=== PATIENT | female | born 1985 | race Caucasian/White ===

== ENCOUNTER 2018-04-18 12:18 | Emergency (ER) | payer MEDICAID ==
[2018-04-18 12:27] VITALS: BMI 29.8
[2018-04-18 12:49] VITALS: TEMP 98.8
--- NOTE | 2018-04-18 13:02 | ED PDOC ---
Arrival/HPI - General Chief Complaint: Shortness Of Breath Time Seen by Provider: 04/18/18 12:24 Historian: Patient, Business Education Teacher - History of Present Illness Narrative History of Present Illness (Text): 04/18/18 12:51 Patient is a 32 year old female whose past medical history includes diabetes, section, and who presents to the emergency department complaining of dyspnea on exertion that started 2 days ago, and is associated with her chest pressure which she experiences daily. Patient is predominately Kazakh speaking and translation was provided by Angel Ramirez ([id number]) from [employer]. Patient reports that 2 days ago she started experiencing dyspnea and chest pressure while walking. Yesterday she experienced chest pressure while walking which lasted 30 minutes and was alleviated by her inhaler. Patient mentions that she experiences daily chest pressure. Today she started experiencing another episode of dyspnea on exertion with chest pressure approximately 1-1.25 hours ago. She mentions that she has a history of dyspnea which she attributes to hot weather. In the past her physician prescribed her an inhaler to take as needed to alleviate her dyspnea and chest pressure. She states that 5 years ago she presented to emergency department while and was admitted to the hospital for 10 days for a respiratory infection and pleural effusion. Patient denies any recent emergency department admission for chest pressure or dyspnea. Patient has been taking insulin for the past 15 years to treat her diabetes and notes that her glucose today of 340 is the highest it has ever been. Patient denies any hemoptysis, lower extremity edema, fevers, chills, headache, dizziness, cough, abdominal pain, nausea, vomiting, diarrhea, back pain, neck pain, or any other complaint. Patient denies using any drugs or EtOH. Time/Duration: < week Symptom Onset: Sudden Symptom Course: Unchanged Activities at Onset: Light Context: Walking Past Medical History - Provider Review Nursing Documentation Reviewed: Yes - Infectious Disease Hx of Infectious Diseases: None - Tetanus Immunization Tetanus Immunization: Up to Date - Pulmonary Hx Asthma: Yes - Endocrine/Metabolic Hx Diabetes Mellitus Type 1: Yes - Psychiatric Hx Substance Use: No - Surgical History Hx Section: Yes (x1) Family/Social History - Physician Review Nursing Documentation Reviewed: Yes Family/Social History: No Known Family HX Smoking Status: Never Smoked Hx Alcohol Use: No Hx Substance Use: No Allergies/Home Meds Allergies/Adverse Reactions: Allergies No Known Allergies Allergy (Verified 12/09/15 12:54) Review of Systems - Physician Review All systems were reviewed & negative as marked: Yes - Review of Systems Respiratory: absent: Other (hemoptysis) Gastrointestinal: absent: Abdominal Pain Physical Exam - Physical Exam Narrative Physical Exam (Text): 04/18/18 13:04 Constitutional: No acute distress. Head: Normocephalic. Atraumatic. Eyes: PERRL. ENT: Moist mucous membranes. Neck: Supple. Cardiovascular: Tachycardic Chest: No tenderness. Respiratory: Clear to auscultation bilaterally. Speaking full sentences. Pulse oximetry 100% on room air. GI: Soft. Nontender. Nondistended. Back: No CVA tenderness. Musculoskeletal: No tenderness or swelling of extremities. Skin: No rash. Neurologic: Alert, no focal deficit. Vital Signs Reviewed: Yes Vital Signs Temp Pulse Resp BP Pulse Ox 04/18/18 15:28 76 18 132/78 98 04/18/18 12:47 98.8 F 106 H 17 139/81 99 04/18/18 12:45 18 100 Temperature: Afebrile Blood Pressure: Normal Pulse: Tachycardic Respiratory Rate: Normal Appearance: Positive for: Well-Appearing Mental Status: Positive for: Alert and Oriented X 3 Finger Stick Blood Glucose: 340 Medical Decision Making ED Course and Treatment: 04/18/18 13:05 Impression: Patient is a 32 year old female who presents to emergency department for chest pressure and dyspnea on exertion. Differential Diagnosis included but are not limited to: Pulmonary Embolism vs. Pneumonia vs. ACS Plan: --EKG --labs --cardiac enzymes --D-dimer --Chest X-ray --Urinalsysis -- Reassess and disposition Prior Visits: Notes and results from previous visits were reviewed. Progress Notes: 04/18/18 13:54 Chest X-ray shows no active disease. Interpreted by me. 04/18/18 13:54 EKG shows NSR at [address]/T wave changes. Normal axis. Interpreted by me. Repeat FS improved. No acidosis on chemistry or blood gas. Discharged home, instructed to follow up with primary care for further full evaluation. - Lab Interpretations Lab Results: 04/18/18 13:00 04/18/18 13:00 Lab Results 04/18/18 13:21: pCO2 31 L, pO2 112.0 H, HCO3 19.6 L, ABG pH 7.41, ABG Total CO2 20.6 L, ABG O2 Saturation 99.1 H, ABG Base Excess -4.0 L, ABG Potassium 3.6, Glucose 347 H, Lactate 3.3 H, FiO2 21.0, Sodium 138.0, Chloride 107.0, Arterial Blood Potassium 3.6 04/18/18 13:00: Sodium 139, Potassium 4.2, Chloride 101, Carbon Dioxide 22, Anion Gap 20, BUN 14, Creatinine 0.6 L, Est GFR ( Amer) > 60, Est GFR ( Non-Af Amer) > 60, Random Glucose 352 H*, Calcium 9.2, Total Bilirubin 0.3, AST 22, ALT 26, Alkaline Phosphatase 94, Total Creatine Kinase 51, Troponin I < 0.01 , NT-Pro-B Natriuret Pep 21.9, Total Protein 7.8, Albumin 4.5, Globulin 3.3, Albumin/Globulin Ratio 1.4 04/18/18 13:00: Urine Color Red, Urine Appearance Turbid, Urine pH 6.0, Ur Specific Moran 1.020, Urine Protein 30 H, Urine Glucose (UA) >=1000, Urine Ketones 40 H, Urine Blood Large H, Urine Nitrate Negative, Urine Bilirubin Negative, Urine Urobilinogen 0.2, Ur Leukocyte Esterase Negative, Urine RBC Tntc , Urine WBC Negative, Ur Epithelial Cells 3 - 4, Urine HCG, Qual Negative 04/18/18 13:00: D-Dimer, Quantitative 234 04/18/18 13:00: WBC 8.4, RBC 5.42, Hgb 11.1 L, Hct 34.4 L, MCV 63.5 L, MCH 20.5 L, MCHC 32.3, RDW 15.9 H, Plt Count 460 H, MPV 8.4, Gran % 70.2 H, Lymph % (Auto ) 24.0, Steele % (Auto) 3.0, Eos % (Auto) 2.4, Baso % (Auto) 0.4, Gran # 5.91, Lymph # (Auto) 2.0, Steele # (Auto) 0.3, Eos # (Auto) 0.2, Baso # (Auto) 0.03 04/18/18 12:31: POC Glucose (mg/dL) 340 H I have reviewed the lab results: Yes - RAD Interpretation Radiology Orders: 04/18/18 12:48 CHEST TWO VIEWS (PA/LAT) [RAD] Stat Make Up Editor: ED Physician - EKG Interpretation Interpreted by ED Physician: Yes Type: 12 lead EKG - Medication Orders Current Medication Orders: Discontinued Medications Sodium Chloride (Sodium Chloride 0.9%) 1,000 mls @ 999 mls/hr IV .Q1H1M STA Stop: 04/18/18 15:09 Last Admin: 04/18/18 14:18 Dose: 999 mls/hr eMAR Start Stop Document 04/18/18 14:18 GMD (Rec: 04/18/18 14:18 GMD [id number]) Intravenous Solution Start Date 04/18/18 Start Time 14:18 End Date 04/18/18 End time 15:19 Total Infusion Time 61 Insulin Human Regular (Humulin R) 8 units SC STAT STA Stop: 04/18/18 14:10 Last Admin: 04/18/18 14:18 Dose: 8 units Subcutaneous Administrations Document 04/18/18 14:18 GMD (Rec: 04/18/18 14:18 GMD [id number]) Injection Site MAR Injection Site Left Arm Charges for Administration # of Subcutaneous Administrations 1 - Scribe Statement The provider has reviewed the documentation as recorded by the Keelyibshawn Kingsley Provider Scribe Attestation: All medical record entries made by the Scribe were at my direction and personally dictated by me. I have reviewed the chart and agree that the record accurately reflects my personal performance of the history, physical exam, medical decision making, and the department course for this patient. I have also personally directed, reviewed, and agree with the discharge instructions and disposition. Disposition/Present on Arrival - Present on Arrival Any Indicators Present on Arrival: No History of DVT/PE: No History of Uncontrolled Diabetes: No Urinary Catheter: No History of Decub. Ulcer: No History Surgical Site Infection Following: None - Disposition Have Diagnosis and Disposition been Completed?: Yes Diagnosis: Dyspnea Disposition: HOME/ ROUTINE Disposition Time: 15:10 Patient Plan: Discharge Condition: STABLE Discharge Instructions (ExitCare): Hyperglycemia, Adult, Shortness of Breath ( Dyspnea) (DC) Referrals: [facility] at [facility] [place] [Outside] - Follow up with primary Forms: Certalia (Lao)
[2018-04-18 13:14] LABS: URINE BILIRUBIN NEGATIVE (NEGATIVE); URINE BLOOD LARGE (NEGATIVE); URINE GLUCOSE (UA) >=1000 mg/dL (NEGATIVE); URINE LEUKOCYTE ESTERASE NEGATIVE Leu/uL (NEGATIVE); URINE PROTEIN 30 mg/dL (<30 mg/dL); URINE UROBILINOGEN 0.2 E.U./dL (<1 E.U./dL)
[2018-04-18 13:15] LABS: URINE APPEARANCE TURBID (CLEAR); URINE COLOR RED (YELLOW)
[2018-04-18 13:18] LABS: HCG,QUALITATIVE URINE NEGATIVE (NEGATIVE)
[2018-04-18 13:19] LABS: BASO # 0.03 K/mm3 (0.0-2.0); BASO % 0.4 % (0.0-3.0); EOS # 0.2 (0.0-0.7); EOS % 2.4 % (1.5-5.0); GRAN # 5.91 (1.4-6.5); GRAN % 70.2 % (50.0-68.0); HEMOGLOBIN 11.1 g/dL (12.0-16.0); MEAN CELL VOLUME 63.5 fl (80.0-105.0); MEAN CORPUSCULAR HEMOGLOBIN 20.5 pg (25.0-35.0); MEAN CORPUSCULAR HGB CONC 32.3 g/dl (31.0-37.0); MEAN PLATELET VOLUME 8.4 fl (7.0-11.0); MONO # 0.3 (0.1-0.6); RBC 5.42 10^6/uL (3.5-6.1); RED CELL DISTRIBUTION WIDTH 15.9 % (11.5-14.5); WHITE BLOOD COUNT 8.4 10^3/ul (4.5-11.0)
[2018-04-18 13:21] LABS: URINE RBC TNTC /hpf (0-2); URINE WBC NEGATIVE /hpf (0-6)
[2018-04-18 13:24] LABS: ARTERIAL BLOOD GAS HCO3 19.6 mmol/L (21-28); ARTERIAL BLOOD GAS O2 SAT 99.1 % (95-98); ARTERIAL BLOOD GAS PCO2 31 mm/Hg (35-45); ARTERIAL BLOOD GAS PH 7.41 (7.35-7.45); ARTERIAL BLOOD GAS TCO2 20.6 mmol.L (22-28)
[2018-04-18 13:35] LABS: ALB/GLOB RATIO 1.4 (1.1-1.8); ALBUMIN 4.5 g/dL (3.0-4.8); ALT/SGPT 26 U/L (7-56); AST/SGOT 22 U/L (14-36); BLOOD UREA NITROGEN 14 mg/dL (7-21); CALCIUM 9.2 mg/dL (8.4-10.5); GFR AFRICAN-AMERICAN > 60; GFR NON-AFRICAN AMERICAN > 60
[2018-04-18 13:36] LABS: B-TYPE NATRIURETIC PEPTIDE 21.9 pg/mL (0-450); TROPONIN I < 0.01 ng/mL
--- NOTE | 2018-04-18 13:45 | RAD ---
HISTORY: dyspnea COMPARISON: No prior. TECHNIQUE: Chest PA and lateral FINDINGS: LUNGS: No active pulmonary disease. PLEURA: No significant pleural effusion identified. No pneumothorax apparent. CARDIOVASCULAR: Normal. OSSEOUS STRUCTURES: No significant abnormalities. VISUALIZED UPPER ABDOMEN: Normal. OTHER FINDINGS: None. IMPRESSION: No active disease.
[2018-04-18] MEDS ORDERED: Insulin Regular 1 UNITS/0.01 ML ML SC STA (14:09)
[2018-04-18] MEDS ORDERED: Sodium Chloride 0.9% 1,000 ML IV STA (14:09)
[2018-04-18 15:28] VITALS: BP 132/78; PULSE 76; RESP 18; O2SAT 98
--- NOTE | 2018-04-18 16:44 | CARD ---
APPROVED REPORT EKG Measurement Heart [id number] <Conclusion> Normal sinus rhythm Normal ECG
== END 2018-04-18 15:47 | disposition home or self-care (01) ==
LOC: ED 12:18
DX: R06.00 Dyspnea, unspecified (principal); E11.9 Type 2 diabetes mellitus without complications
CPT/HCPCS: 71046; 80053; 81001; 82550; 82803; 82948; 83880; 84484; 84703; 85025; 85378; 93005; 96360; 96372; 99284; J7030